=== PATIENT | male | born 1980 | race Caucasian/White ===

== ENCOUNTER 2018-08-04 23:43 | Emergency (ER) | payer BC ==
--- NOTE | 2018-08-04 23:58 | Emergency Department Record ---
History of Present Illness - General Stated Complaint: DIARRHEA Time Seen by Provider: 08/04/18 23:49 Source: Patient Mode of Arrival: Ambulatory Limitations: No limitations - History of Present Illness Initial Comments: The patient is here due to diarrhea for 12 hours. He states he has had watery diarrhea all day today. The patient has a hx of being on Clindamycin and Amoxacillin over the last 2 weeks due to a dental infection. He then developed crampy AP and diarrhea over the last few days so he went to [facility] last night where he had full lab work done and a CT scan which demonstrated colitis. He was discharged on Cipro, Flagyl, and Zofran. He was unable to give them a stool specimen so when the diarrhe worsened he decided to come here. There is no AP, nausea, vomiting, fever, or weakness presently. The patient does have abdominal cramping prior to the diarrhea. He is concerned he may have Cdiff colitis. I did explain to him that is one of the things that he is presently being treated for with the medicines from [facility]. Complaint: Other Onset/Timin -: Hour(s) - Related Data Home Medications Medication Instructions Recorded Confirmed Last Taken Ciprofloxacin HCl [Cipro] 500 mg PO Q12HR 08/05/18 08/05/18 Unknown Dicyclomine HCl 20 mg PO Q6H PRN 08/05/18 08/05/18 Unknown Metronidazole [Flagyl] 500 mg PO TID 08/05/18 08/05/18 Unknown Ondansetron [Zofran Odt] 4 mg PO Q8H PRN 08/05/18 08/05/18 Unknown Allergies Allergy/AdvReac Type Severity Reaction Status Date / Time No Known Drug Allergies Allergy Verified 08/05/18 00:03 Review of Systems Constitutional: Denies: Chills, Fever Eyes: Denies: Eye discharge ENT: Denies: Congestion, Other Respiratory: Denies: Dyspnea Cardiovascular: Denies: Arrhythmia, Chest pain Endocrine: Denies: Fatigue Gastrointestinal: Denies: Nausea Genitourinary: Denies: Dysuria Musculoskeletal: Denies: Arthralgia Skin: Denies: Bruising Past Medical History - SOCIAL HISTORY Smoking Status: Current every day smoker Alcohol Use: Occasional - RESPIRATORY Hx Respiratory Disorders: No - CARDIOVASCULAR Hx Cardio Disorders: No - NEURO Hx Neuro Disorders: No Physical Exam - General General Appearance: Alert, Oriented x3, Cooperative, No acute distress - Head Head exam: Atraumatic, Normocephalic - Eye Eye exam: Normal appearance, PERRL - ENT Throat exam: Normal inspection. negative: Tonsillar erythema, Tonsillar exudate - Neck Neck exam: Normal inspection, Full ROM. negative: Tenderness - Respiratory Respiratory exam: Normal lung sounds bilaterally. negative: Respiratory distress - Cardiovascular Cardiovascular Exam: Regular rate, Normal rhythm, Normal heart sounds - GI/Abdominal GI/Abdominal exam: Soft, Normal bowel sounds. negative: Guarding, Rebound, Rigid, Tenderness - Extremities Extremities exam: Normal inspection, Full ROM, Normal capillary refill. negative: Tenderness - Back Back exam: Reports: Normal inspection - Neurological Neurological exam: Alert, Normal gait. negative: Abnormal gait, Motor sensory deficit - Psychiatric Psychiatric exam: negative: Anxious Course - Reevaluation(s) Reevaluation #1: CT scan reviewed from 08/03 at 7pm: Normal per Rad. No intestinal abnormality, colitis, or acute surgical pathology. 08/05/18 00:24 Reevaluation #2: The patient is doing well at this time. He is up walking normally and drinking fluids well. He has had another loose stool here but there is no AP, blood or fever. I did discuss the Cdiff test with him. It appears that our lab testing for Cdiff is most likely compromised and the test is not accurate due to a machine malfunction. The patient is actually being treated for the Cdiff anyway with Flagyl which he just started. I explained to him that the Flagyl is an accepted treatment option and I would recommend stopping the Cipro. He is to be off work 2 days and see his family doctor for recheck. 08/05/18 01:42 Medical Decision Making - Lab Data Result diagrams: 08/05/18 00:20 08/05/18 00:20 Disposition Disposition: Discharge Clinical Impression: Diarrhea Qualifiers: Diarrhea type: unspecified type Qualified Code(s): R19.7 - Diarrhea, unspecified Disposition: Home, Self-Care Condition: (2) Stable Instructions: Acute Diarrhea (ED) Additional Instructions: Please continue the Flagyl and stop the Cipro. Please see your family doctor for recheck in 2-3 days. Return to the ER for any fever, vomiting, or bleeding. Forms: Patient Portal Access Time of Disposition: 01:42 Quality - Quality Measures Quality Measures: N/A - Blood Pressure Screening View Details: Yes Does Patient Have Any of the Following: No Blood Pressure Classification: Hypertensive Reading Systolic Measurement: 131 Diastolic Measurement: 92 Screening for High Blood Pressure: < First Hypertensive BP, F/U Documented > [ [id number]] First Hypertensive Follow-up Interventions: Referral to alternative/primary care provider.
[2018-08-05 00:28] LABS: BASO % 0.4 % (0-6); EOS % 2.1 % (0-6); GRAN % 62.6 % (47-80); HEMATOCRIT 43.3 % (42.0-52.0); HEMOGLOBIN 14.9 gm/dl (14.0-18.0); LYMPH % 22.6 % (16-45); MEAN CELL VOLUME 92.7 fl (81-97); MEAN CORPUSCULAR HEMOGLOBIN 31.9 pg (27-33); MEAN CORPUSCULAR HGB CONC 34.4 g/dl (32-36); MEAN PLATELET VOLUME 10.1 fl (7.4-10.4); MONO % 12.3 % (0-9); PLATELET COUNT 208 K/uL (130-400); RED BLOOD COUNT 4.67 M/uL (4.40-5.70); RED CELL DISTRIBUTION WIDTH 12.8 % (11.5-14.5); WHITE BLOOD COUNT W/O DIFF 4.7 K/uL (4.2-12.2)
[2018-08-05 00:44] LABS: BLOOD UREA NITROGEN 8 mg/dL (6-20)
[2018-08-05 00:45] LABS: CREATININE 0.9 mg/dL (0.7-1.2); EST GLOMERULAR FILTRATION RATE > 60 mL/min; TOTAL PROTEIN 7.2 g/dL (6.6-8.7)
[2018-08-05 00:47] LABS: GLUCOSE,RANDOM 105 mg/dL (74-109)
[2018-08-05 00:50] LABS: ALB/GLOB RATIO 1.4 (1.1-1.8); ALBUMIN 4.2 g/dL (4.0-5.0); ALKALINE PHOSPHATASE 79 U/L (40-129); ALT/SGPT 27 U/L (<41); AST/SGOT 24 U/L (10.0-50.0)
[2018-08-05] MEDS ORDERED: 0.9 % SODIUM CHLORIDE 1000ML 1,000 ML IV ONE (01:54)
== END 2018-08-05 01:59 | disposition home or self-care (01) ==
LOC: ER 23:43
DX: R19.7 Diarrhea, unspecified (principal); R10.9 Unspecified abdominal pain; F17.210 Nicotine dependence, cigarettes, uncomplicated
CPT/HCPCS: 80053; 85025; 87493; 96360; 99284; J7030